=== PATIENT | female | born 1955 | race Caucasian/White ===

== ENCOUNTER 2019-08-20 12:06 | Emergency (ER) | payer MEDICAID, MEDICARE ==
[2019-08-20] MEDS: METHYLPREDNISOLONE PF 125MG/VIAL IVP ONE (12:33)
[2019-08-20] MEDS: LISINOPRIL 10 MG TABLET PO ONE (12:33)
[2019-08-20] MEDS: IPRATROPIUM/ALBUTEROL (0.5MG/3MG) NEB INH ONE (12:43)
[2019-08-20] MEDS: ALBUTEROL SULFATE (0.083%) 2.5 MG/3 ML NEB INH ONE (12:43)
--- NOTE | 2019-08-20 12:43 | Emergency Department Record ---
History of Present Illness - General Chief Complaint: Shortness of breath Stated Complaint: SHORT OF BREATH Time Seen by Provider: 08/20/19 12:20 Source: Patient, Family Mode of Arrival: Ambulatory Limitations: No limitations - History of Present Illness Initial Comments: The patient is here due to a 2 week hx of cough and congestion. She has a hx of COPD and asthma and ran out of her inhallers and oral medicines a few weeks ago. She went to a doctors visit today to get them filled and was told to go to the ER due to possibly having a blood clot in her lungs. The patient denies any CP or pleuritic chest or back pain. There also has been no fever, sputum production or ST. Complaint: Cough, Shortness of breath Onset/Timin -: Week(s) Improves With: Bronchodilators Worsens With: Exertion Known History Of: COPD Associated Symptoms: Cough Treatments Prior to Arrival: None - Related Data Home Oxygen Therapy: No Allergies Allergy/AdvReac Type Severity Reaction Status Date / Time codeine AdvReac BEHAVIORAL Verified 08/20/19 12:11 CHANGES Travel Screening - Travel/Exposure Within Last 30 Days Have you traveled within the last 30 days?: No - Travel/Exposure Within Last Year Have you traveled outside the [place] in the last year?: No - Additonal Travel Details Have you been exposed to anyone with a communicable illness?: No - Travel Symptoms Symptom Screening: None Review of Systems Constitutional: Reports: Malaise. Denies: Chills, Fever Eyes: Denies: Eye discharge ENT: Reports: Congestion Respiratory: Reports: Cough, Dyspnea. Denies: Hemoptysis Cardiovascular: Denies: Arrhythmia, Chest pain, Dyspnea on exertion Endocrine: Denies: Fatigue Gastrointestinal: Denies: Nausea Genitourinary: Denies: Dysuria Musculoskeletal: Denies: Arthralgia Skin: Denies: Bruising Past Medical History - SOCIAL HISTORY Smoking Status: Current every day smoker Alcohol Use: Occasional Drug Use: None - RESPIRATORY Hx Respiratory Disorders: Yes Hx Asthma: Yes Hx COPD: Yes - CARDIOVASCULAR Hx Cardio Disorders: Yes Hx Hypertension: Yes - NEURO Hx Neuro Disorders: No - GI Hx GI Disorders: No - Hx Genitourinary Disorders: No - ENDOCRINE Hx Endocrine Disorders: No - MUSCULOSKELETAL Hx Musculoskeletal Disorders: No - PSYCH Hx Psych Problems: Yes Hx Depression: Yes - HEMATOLOGY/ONCOLOGY Hx Hematology/Oncology Disorders: No Family Medical History Any Significant Family History?: Yes Family Hx Comment (NOT TO BE USED IN PLACE OF ITEMS BELOW): was adopted Hx HTN: Brother/Sister Hx Resp Disorders: Brother/Sister Physical Exam - General General Appearance: Alert, Oriented x3, Cooperative, No acute distress (The patient is in no respiratory distress and is speaking in full sentences.) - Head Head exam: Atraumatic, Normocephalic - Eye Eye exam: Normal appearance, PERRL, EOMI - ENT Throat exam: Normal inspection. negative: Tonsillar erythema, Tonsillar exudate - Neck Neck exam: Normal inspection, Full ROM. negative: Tenderness - Respiratory Respiratory exam: Decreased breath sounds, Wheezes. negative: Normal lung sounds bilaterally, Accessory muscle use, Chest wall tenderness, Respiratory distress, Rhonchi, Stridor - Cardiovascular Cardiovascular Exam: Regular rate, Normal rhythm, Normal heart sounds - GI/Abdominal GI/Abdominal exam: Soft, Normal bowel sounds. negative: Tenderness - Extremities Extremities exam: Normal inspection, Full ROM, Normal capillary refill. negative: Calf tenderness, Pedal edema, Tenderness - Neurological Neurological exam: Alert. negative: Motor sensory deficit Course Vital Signs 08/20/19 12:14 Temperature 97.7 F Pulse Rate 95 H Respiratory 20 Rate Blood Pressure 179/107 Pulse Ox 97 - Reevaluation(s) Reevaluation #1: The patient is doing better at this time. She states her breathing now is back to normal after the 2 neb treatments and IV steroids and her lungs are clear on exam with no wheezing. I did discuss the neg D-dimer with her and did discuss t hat I think it is quite unlikely she has a PE due to that fact. We are still waiting for her xray report. The patient's Trop did come back indeterminent so we will repeat that at 2pm. 08/20/19 13:21 Reevaluation #2: The patient is doing very well at this time. I did repeat her Trop's and it was still indeterminent. I also did 2 CK-MB's and they were also elevated. On f urther questioning the patient had been having some vague discomfort at night a few nights ago. Due to that fact I do feel the most prudent course of action is to transfer the patient to a larger hospital for further workup of the heart and lung tumors. 08/20/19 15:18 Reevaluation #3: I did discuss the issues with Dr. Tilley at [facility] and he did accept the patient for a direct admission. 08/20/19 15:30 Medical Decision Making - Data Complexity MDM Data: Labs Ordered and/or Reviewed, X-Ray Ordered and/or Reviewed, EKG Ordered and/or Reviewed - Lab Data Result diagrams: 08/20/19 12:20 08/20/19 12:20 - EKG Data -: EKG Interpreted by Me EKG: No Acute Changes, Normal EKG - Radiology Data Radiology results: Report reviewed (CXR: AURELIO nodules, Rec CT Chest CT: 2 AURELIO nodules very suspicious for malignancy.) Disposition Disposition: Transfer Clinical Impression: Chest pain, atypical, Tumor of lung Disposition: Acute Care Hospital Transfer Transfer To: [facility] Reason For Transfer: Cardiology Accepting Physician: Jarek Time Discussed w/Accepting Physician: 15:31 Condition: (2) Stable Forms: Patient Portal Access Time of Disposition: 15:31 Quality - Quality Measures Quality Measures: N/A - Blood Pressure Screening View Details: Yes Does Patient Have Any of the Following: Active Dx of HTN Blood Pressure Classification: Hypertensive Reading Systolic Measurement: 179 Diastolic Measurement: 107 Screening for High Blood Pressure: Patient Exclusion, Hx of HTN [[id number]]
[2019-08-20 12:45] LABS: ABSOLUTE NEUTROPHIL COUNT 4.41; EOS % 3.3 % (0-6); GRAN % 65.7 % (47-80); HEMATOCRIT 39.3 % (35.0-47.0); HEMOGLOBIN 12.4 gm/dl (11.6-16.0); LYMPH % 22.3 % (16-45); MEAN CELL VOLUME 104.8 fl (81-97); MEAN CORPUSCULAR HGB CONC 31.6 g/dl (32-36); MEAN PLATELET VOLUME 10.1 fl (7.4-10.4); MONO % 7.7 % (0-9); PLATELET COUNT 351 K/uL (130-400); RED BLOOD COUNT 3.75 M/uL (3.80-5.40); RED CELL DISTRIBUTION WIDTH 12.7 % (11.5-14.5); WHITE BLOOD COUNT W/O DIFF 6.7 K/uL (4.2-12.2)
[2019-08-20 12:57] LABS: BLOOD UREA NITROGEN 19 mg/dL (8-23)
[2019-08-20 12:58] LABS: CREATININE 0.8 mg/dL (0.5-0.9); EST GLOMERULAR FILTRATION RATE > 60 mL/min; TOTAL PROTEIN 7.6 g/dL (6.6-8.7)
[2019-08-20 13:00] LABS: GLUCOSE,RANDOM 132 mg/dL (74-109)
[2019-08-20 13:03] LABS: ALB/GLOB RATIO 1.8 (1.1-1.8); ALBUMIN 4.9 g/dL (4.0-5.0); ALKALINE PHOSPHATASE 82 U/L (35-104); ALT/SGPT 21 U/L (<33); AST/SGOT 26 U/L (10.0-35.0)
--- NOTE | 2019-08-20 13:51 | RADIOLOGY REPORT ---
EXAMINATION: Two View Chest Radiographs EXAM DATE: 08/20/2019 1:30 PM TECHNIQUE: Frontal and lateral views INDICATION: VERO COMPARISON: None ENCOUNTER: Not applicable FINDINGS: The heart and mediastinal are within normal limits. No pulmonary consolidation is seen. A 1.6 cm nodu le at the left upper lung is seen on the frontal projection. No pulmonary effusion or pneumothorax. T he lung is hyperinflated. Osseous structures and soft tissue markings are within normal limits. IMPRESSION: 1. 1.6 cm pulmonary nodule at the left upper lung. CT of the chest is recommended for complete evalua tion. 2. No acute cardiopulmonary disease is present. 3. Hyperinflated lung likely related to emphysema. Dictated by: Bryan Georges DO on 08/20/2019 1:46 PM. .
--- NOTE | 2019-08-20 14:45 | CT SCAN REPORT ---
EXAMINATION: CT Chest without IV Contrast EXAM DATE: 08/20/2019 2:38 PM TECHNIQUE: Standard protocol CT images of the chest were performed without intravenous contrast. Lac k of intravenous contrast does limit assessment of the vascular structures and soft tissues. Coronal and sagittal images were reconstructed. INDICATION: AURELIO nodule COMPARISON: Chest x-ray from earlier today. ENCOUNTER: Not applicable CHEST FINDINGS: Base of Neck & Axillae: There is no adenopathy. Mediastinum & Shaina: There is no mediastinal or hilar adenopathy. Cardiovascular: The heart has a normal size. There is no pericardial effusion. The thoracic aorta an d main pulmonary artery have a normal caliber. Tracheobronchial Structures: There is no bronchial wall thickening or bronchiectasis. Lung Parenchyma: Severe pulmonary emphysema. 2 separate left upper lobe lung nodules measuring up to 2 and 1.5 cm maximum dimension, respectively. Pleural Space: There are no pleural effusions. There is no pneumothorax. Upper Abdomen: Included portions of the upper abdomen are unremarkable. Chest Wall & Musculoskeletal: No suspicious bone lesions. 3-D Imaging at an Independent Workstation: Not performed. Assessment of the soft tissues and vascular structures is overall limited on noncontrast imaging, IMPRESSION: 1. 2 left upper lobe lung nodules measuring up to 2 and 1.5 cm maximum dimension, respectively, camila rning for primary bronchogenic malignancy until proven otherwise. 2. Severe pulmonary emphysema. 3. No evidence of metastatic disease within the chest. Dictated by: Dave Farris MD on 08/20/2019 2:41 PM. .
[2019-08-20 15:05] LABS: CKMB 8.4 ng/mL (<3.77)
[2019-08-20 15:05] LABS: CKMB 8.2 ng/mL (<3.77)
[2019-08-20 15:19] LABS: CKMB RELATIVE INDEX 6.1 % (0-4)
[2019-08-20 15:19] LABS: CKMB RELATIVE INDEX 6.3 % (0-4)
[2019-08-20] MEDS: ASPIRIN 325 MG TABLET PO ONE (15:35)
== END 2019-08-20 17:00 | disposition short-term general hospital (02) ==
LOC: ER 12:06
DX: R07.89 Other chest pain (principal); R06.02 Shortness of breath; I10 Essential (primary) hypertension; F17.210 Nicotine dependence, cigarettes, uncomplicated; R91.8 Other nonspecific abnormal finding of lung field
CPT/HCPCS: 71046; 71250; 80053; 82550; 82553; 83880; 84484; 85025; 85379; 93005; 93010; 94640; 96374; 99285; J2930; J7613